=== PATIENT | female | born 1980 | race Caucasian/White ===

== ENCOUNTER → 2017-03-12 | Outpatient (CLI) | payer OTHER ==
[2017-03-12 11:54] LABS: Basophils % (A) 0 %; CH 32.6; CHCM 33.6; Eosinophils # (A) 0.1 k/uL (0-0.7); Eosinophils % (A) 1 %; HDW 2.51; HGB 15.2 gm/dL (11.4-16.0); Luc % (Auto) 1; Lymphocytes # (A) 2.4 k/uL (1.0-4.8); Lymphocytes % (A) 25 %; MCH 32.8 pg (25.0-35.0); MCHC 33.7 g/dL (31.0-37.0); MCV 97.4 fL (80.0-100.0); Monocytes # (A) 0.3 k/uL (0-1.0); Monocytes % (A) 3 %; Neutrophils # (A) 6.7 k/uL (1.3-7.7); Neutrophils % (A) 70 %; RBC 4.62 m/uL (3.80-5.40); RDW 12.2 % (11.5-15.5); WBC 9.6 k/uL (3.8-10.6); WBC (Perox) 9.53
[2017-03-12 12:20] LABS: Potassium 4.5 mmol/L (3.5-5.1)
== END | disposition home or self-care (01) ==
LOC: LABPAT 11:17
PROVIDERS: ATTEND Orthopaedic Surgery
DX: Z01.812 Encounter for preprocedural laboratory examination (principal); M23.92 Unspecified internal derangement of left knee
CPT/HCPCS: 36415; 80051; 81025; 85025

== ENCOUNTER 2017-03-20 08:40 | Day surgery (SDC) | payer OTHER ==
[2017-03-17 13:46] VITALS: BMI 27.3
--- NOTE | 2017-03-19 09:57 | HP ---
HISTORY AND PHYSICAL CHIEF COMPLAINT: Left knee pain. 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 She twisted it while after she fell while trying to keep a patient from falling off a stretcher on a wheelchair ramp. She notes medial and anterior pain with weightbearing activities and walking. She has been using a brace. She recently completed a Medrol Dosepak with temporary relief of her symptoms. She is currently off work as restricted duty has not been available. She denies significant previous problems. PAST MEDICAL HISTORY: Negative. PAST SURGICAL HISTORY: Significant for previous right knee arthroscopy. CURRENT MEDICATIONS: Aleve. ALLERGIES: She notes allergies to SULFA. FAMILY HISTORY: Negative. SOCIAL HISTORY: Significant for 1/2 pack per day tobacco use and social alcohol use. REVIEW OF SYSTEMS: Sixteen point review of systems otherwise reviewed and is noncontributory. PHYSICAL EXAMINATION: On examination, the patient is approximately 5 feet 7 inches, 180 pounds of endomorphic habitus. HEENT exam is nonfocal. Neck is supple. She has painless passive motion of her left hip. On examination of her left knee, she has significant guarding. Active motion -22 degrees full extension to 80 degrees of flexion. Collaterals are stable. I am unable to assess Ho's or Micah's secondary to guarding. She has an antalgic gait pattern. Her distal neurovascular exam appears to be intact in the left lower extremity. MRI report for the left knee shows fissuring of the patellofemoral articular surface. IMPRESSION: Internal derangement, left knee with possible patellar chondral injury. RECOMMENDATIONS: I talked to the patient at length regarding her treatment options. She does not feel as though she has improved at all since her initial injury despite therapy and medications. After a thorough discussion, she opts to proceed with surgery. We will plan to proceed with arthroscopic evaluation with possible patellar chondroplasty. Risks and benefits were discussed at length in layman's terms. We will likely perform that as an outpatient procedure. MMODL / IJN: [id number] /
[~2017-03-20 08:40] MED LIST: DEXAMETHASONE SOD PHOSPHATE 10 MG/ML 1 ML VIAL IV ONE; HEPARIN SODIUM,PORCINE 5,000 UNIT/ML 1 ML VIAL SQ ONE; LACTATED RINGERS 1,000 ML IV SCH; MIDAZOLAM 2 MG/2 ML VIAL IV PRN; ONDANSETRON 4 MG/2 ML VIAL IVP ONE; SCOPOLAMINE 1.5MG/72HR PATCH TRANSDERM ONE; ceFAZolin 2 GM in SODIUM CHLORIDE 0.9% 100 ML IVPB ONE
[2017-03-20] MEDS ORDERED: LIDOCAINE 1% 20 ML VIAL (10MG/ML) FOR IV START INTRADERMA ONE (09:36)
[2017-03-20] MEDS ORDERED: MIDAZOLAM 2 MG/2 ML VIAL ONE (10:04)
[2017-03-20] MEDS ORDERED: LIDOCAINE 1% INJ 10MG/ML (20 ML MDV) ONE (10:04)
[2017-03-20] MEDS ORDERED: KETOROLAC 30 MG/ML 1 ML VIAL ONE (10:04)
[2017-03-20] MEDS ORDERED: PROPOFOL 10 MG/ML 20 ML VIAL IV ONE (10:04)
[2017-03-20] MEDS ORDERED: fentaNYL (PF) 50 MCG/ML 2 ML AMP ONE (10:04)
[2017-03-20] MEDS: HYDROmorphone 0.5 MG/0.5 ML SYRINGE IVP PRN ×3 (10:50→11:00)
--- NOTE | 2017-03-20 10:53 | P.OP ---
Date of Procedure: 03/20/17 Preoperative Diagnosis: left knee internal derangement Postoperative Diagnosis: grade 2/3 chondral injury lateral patella facet/grade 2 chondral injury lateral tibial plateau/reactive synovitis of the medial and patellofemoral compartments Procedure(s) Performed: left knee arthroscopic patellar chondroplasty/lateral tibial chondrectomy/ partial synovectomy of the medial and patellofemoral compartments Anesthesia: GETA Surgeon: Manjit Ulrich Estimated Blood Loss (ml): 10 Pathology: none sent Condition: stable Disposition: PACU Indications for Procedure: the patient is a 36-year-old female presents with progressive left knee pain and mechanical symptoms that began after a work injury recently and did not improve with conservative treatment. A discussion of the risks and benefits of operative intervention versus continued conservative measures was made with the patient. She opted to proceed with surgery. Operative risks to include infection, neurovascular injury, development of blood clots, possible incomplete resolution symptoms, possible worsening symptoms and need for subsequent procedures was discussed. Informed consent was obtained. Operative Findings: as below Description of Procedure: the patient was brought to the operating room, and after induction of general anesthesia the left lower extremity was prepped and draped in normal fashion. I examined the left knee. Collaterals were stable, Ho was negative, and posterior drawer was negative. A superior lateral portal was made through a 3 mm skin incision superior and lateral to the patella. This was used for outflow. A lateral portal was made through a 5 mm vertical skin incision lateral to the patella tendon above the joint. Diagnostic arthroscopy was performed. A medial portal was made through a similar incision medial to the patella tendon above the joint line.on inspection of the medial compartment, no significant meniscal or cartilage pathology was noted. Reactive synovitis involving anterior medial compartment was noted was debrided with a motorized shaver. On inspection the notch, the anterior cruciate ligament appeared to be intact. On inspection lateral compartment the lateral meniscus was stable and intact. A grade 2 chondral injury involving the medial portion of the lateral tibial plateau was noted. There was a small loose chondral flap debrided back to stable base with a motorized shaver. On inspection patellofemoral articulation, a large grade 2/3 chondral injury was noted involving the lateral patella facet. There was a 6 x 8 mm loose chondral flap. This was debrided back to stable base with a motorized shaver. The gutters were clear of debris. No corresponding lesion was noted along the femoral trochlea. The knee was thoroughly irrigated with. The arthroscope was then removed. The portals were closed with Steri-Strips. A sterile dressing was applied in addition to a compression stocking. The patient was awoken from general anesthesia and transferred to recovery room in good condition. Blood loss was estimated at 10 mL. No complications were incurred.
[2017-03-20 11:06] VITALS: TEMP 97.4
[2017-03-20] MEDS ORDERED: diphenhydrAMINE 50 MG/ML 1 ML VIAL IVP ONE (11:13)
[2017-03-20] MEDS ORDERED: LACTATED RINGERS 1,000 ML IV ONE (11:15)
[2017-03-20] MEDS ORDERED: traMADol 50 MG TAB PO ONE (12:23)
[2017-03-20 12:25] VITALS: BP 105/65; PULSE 74; RESP 18
== END 2017-03-20 13:23 | disposition home or self-care (01) ==
LOC: OR 08:40
PROVIDERS: ATTEND Orthopaedic Surgery
DX: S83.32XA Tear of articular cartilage of left knee, current, initial encounter (principal); M65.862 Other synovitis and tenosynovitis, left lower leg; F17.200 Nicotine dependence, unspecified, uncomplicated; Y93.F9 Activity, other caregiving; Y92.89 Other specified places as the place of occurrence of the external cause; W18.39XA Other fall on same level, initial encounter; Z88.2 Allergy status to sulfonamides; Z79.1 Long term (current) use of non-steroidal anti-inflammatories (NSAID)
CPT/HCPCS: 29876; 81025; J2250; J1200; J1100; J0690; J2405; J2001; J3010; J1885; J2704; J1170

== ENCOUNTER 2017-08-22 13:33 | Emergency (ER) | payer BC ==
[2017-08-22 13:46] VITALS: TEMP 99
--- NOTE | 2017-08-22 14:56 | XR ---
EXAMINATION TYPE: XR mandible complete DATE OF EXAM: 08/22/2017 COMPARISON: NONE HISTORY: Woke up with jaw pain TECHNIQUE: 5 views of the mandible were obtained. FINDINGS: On the closed mouth AP view there is a questionable lucency in the left anterior mandibular condyle. This could be artifactual. IMPRESSION: Questionable lucency questionable lucency in the left anterior mandible condyle could be artifactual. CT scan could be obtained if warranted.
--- NOTE | 2017-08-22 16:08 | CT ---
EXAMINATION TYPE: CT facial bones wo con DATE OF EXAM: 08/22/2017 COMPARISON: NONE HISTORY: jaw pain and decreased range of motion without injury CT DLP: 615.9 mGycm Automated exposure control for dose reduction was used. TECHNIQUE: CT scan of the sinuses is performed without contrast, axial images are obtained, coronal r eformatted images are also reviewed. FINDINGS: The paranasal sinuses including the frontal, ethmoid, sphenoid, and maxillary sinuses bila terally are well-aerated without abnormal opacification. The ostiomeatal complex is patent bilateral ly on the coronal images. Visualized portion of mastoid air cells show no abnormal opacification. The globes are intact bilate rally. IMPRESSION: The sinuses are clear and the ostiomeatal complex is patent bilaterally. No fracture or s ubluxation is seen.
--- NOTE | 2017-08-22 16:28 | ED ---
General Adult HPI - General Chief complaint: ENT Stated complaint: TMJ; refused EMS at [facility] Time Seen by Provider: 08/22/17 14:07 Source: patient, RN notes reviewed Mode of arrival: ambulatory Limitations: no limitations - History of Present Illness Initial comments: 37-year-old female presents to the emergency department for pain at the left TMJ. Patient states she noticed pain yesterday and today when she woke up she could barely open her mouth. She states there is slight tenderness to the TMJ when palpated. Patient went to urgent care and they gave her 60 mg of Toradol and sent her to the emergency department. Patient states this helped the pain considerably and she is now able to open her mouth 2 - 3 cm. 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 She has not tried any other pain relief for this. Patient has not seen a dentist in the last year. Patient's jaw is not locked at time of the examination is able to able to open her mouth about 2-3 cm and move the mandible laterally. Patient is able to eat soft foods and drink liquids. Patient denies sore throat. Patient denies any recent cuts or muscle spasms elsewhere. - Related Data Previous Rx's Medication Instructions Recorded traMADol HCl [Ultram] 50 mg PO Q6H PRN #40 tab 03/20/17 Ibuprofen [Motrin] 800 mg PO Q8H PRN #20 tab 08/22/17 Allergies Allergy/AdvReac Type Severity Reaction Status Date / Time acetaminophen [From Tylenol] Allergy WAS TOLD Verified 08/22/17 13:44 NOT TO TAKE BY HER BINA [place] (Sulfonamide Allergy Dyspnea Verified 08/22/17 13:44 Antibiotics) Review of Systems ROS Statement: Those systems with pertinent positive or pertinent negative responses have been documented in the HPI. ROS Other: All systems not noted in ROS Statement are negative. Past Medical History Past Medical History: No Reported History History of Any Multi-Drug Resistant Organisms: None Reported Additional Past Surgical History / Comment(s): RIGHT and left KNEE ARTHROSCOPIC Past Anesthesia/Blood Transfusion Reactions: No Reported Reaction Past Psychological History: No Psychological Hx Reported Smoking Status: Current every day smoker Past Alcohol Use History: Occasional Past Drug Use History: None Reported - Past Family History Mother Family Medical History: Deep Vein Thrombosis (DVT) Additional Family Medical History / Comment(s): DVT -LEG General Exam Limitations: no limitations Head exam: Present: atraumatic, normocephalic, other (Slight tenderness to the TMJ, patient is able to open mouth about 2-3 cm. Patient is able to laterally move the mandible.) Eye exam: Present: normal appearance, PERRL, EOMI. Absent: scleral icterus, conjunctival injection, periorbital swelling ENT exam: Present: normal exam, normal oropharynx (Patient denies sore throat.) , mucous membranes moist Neck exam: Present: normal inspection. Absent: tenderness, meningismus, lymphadenopathy Respiratory exam: Present: normal lung sounds bilaterally. Absent: respiratory distress, wheezes, rales, rhonchi, stridor Cardiovascular Exam: Present: regular rate, normal rhythm, normal heart sounds. Absent: systolic murmur, diastolic murmur, rubs, gallop, clicks GI/Abdominal exam: Present: soft. Absent: tenderness Extremities exam: Present: normal inspection, full ROM, normal capillary refill. Absent: tenderness, pedal edema, joint swelling, calf tenderness Course Vital Signs 08/22/17 13:44 Temperature 99 F Pulse Rate 101 H Respiratory 20 Rate Blood Pressure 140/90 O2 Sat by Pulse 99 Oximetry Medical Decision Making - Medical Decision Making 37-year-old female presents to the emergency department for left TMJ pain. Patient is able to open her mouth 2-3 cm and move her mandible laterally. She is able to eat soft foods and drink liquids. X-ray was ordered which showed a possible lucency on the left anterior mandibular condyle. CT was obtained which showed no abnormalities including fractures or dislocations. Patient was given 60 of Toradol at an urgent care and was told to follow-up in the emergency department. Toradol helped the pain considerably. Patient will be referred to oral surgery. In the meantime she will take ibuprofen. Patient wishes to have 800 mg ibuprofen tablets prescribed because she believes one pill will be easier for her to tolerate with the pain in her jaw. She will return to the emergency department if she is unable to open her mouth and/or symptoms worsen. Disposition Clinical Impression: TMJ (temporomandibular joint disorder) Disposition: HOME SELF-CARE Condition: Good Additional Instructions: Please return to the emergency department if your symptoms worsen and/or you are unable to open her mouth. Please follow-up with oral surgery. In the meantime, please take ibuprofen for pain relief. Prescriptions: Ibuprofen [Motrin] 800 mg PO Q8H PRN #20 tab PRN Reason: Pain Referrals: None,Stated [Primary Care Provider] - 1-2 days Antolin Wylie DDS [STAFF PHYSICIAN] - 1-2 days Time of Disposition: 16:27
[2017-08-22 16:36] VITALS: BP 100/84; PULSE 87; RESP 18
== END 2017-08-22 16:35 | disposition home or self-care (01) ==
LOC: EC 13:33
DX: M26.622 Arthralgia of left temporomandibular joint (principal); F17.200 Nicotine dependence, unspecified, uncomplicated; Z88.2 Allergy status to sulfonamides; Z88.8 Allergy status to other drugs, medicaments and biological substances
CPT/HCPCS: 70110; 70486; 99284

== ENCOUNTER → 2022-01-31 | Outpatient (CLI) | payer OTHER ==
--- NOTE | 2022-01-31 15:28 | XR ---
EXAMINATION TYPE: XR hand complete RT DATE OF EXAM: 01/31/2022 3:24 PM INDICATION: Patient age:Female; 41 years old; Reason for study: S60.221A CONTUSION OF RIGHT HAND, COMPARISON: None TECHNIQUE: Frontal, lateral and oblique views of the right hand were obtained. FINDINGS: Normal alignment of the visualized joints. No acute osseous pathology is identified. Mild soft tissue swelling of the first digit. IMPRESSION: 1. No acute osseous pathology. 2. Mild soft tissue swelling of the first digit.
== END | disposition home or self-care (01) ==
LOC: RADXRMAIN 15:03
PROVIDERS: ATTEND Emergency Medicine
DX: S60.221A Contusion of right hand, initial encounter (principal); M79.89 Other specified soft tissue disorders